=== PATIENT | male | born 1975 | race Caucasian/White ===

== ENCOUNTER 2019-01-17 20:30 | Emergency (ER) | payer OTHER ==
[~2019-01-17] VITALS: Ht 170.2 cm; Wt 102.1 kg
[2019-01-17 20:30] VITALS: BP_SYST 142
[2019-01-17 20:56] LABS: BASOPHILS % (AUTO) 0.4 % (0.0-2.0); EOSINOPHILS # (AUTO) 0.1 K/uL (0.0-0.4); EOSINOPHILS % (AUTO) 1.9 % (0.0-4.0); HEMATOCRIT 41.2 % (36-54); HEMOGLOBIN 14.4 g/dL (14.0-18.0); LYMPHOCYTES % (AUTO) 41.5 % (20.5-51.5); MEAN CORPUSCULAR HEMOGLOBIN 32 pg (27-31); MEAN CORPUSCULAR HGB CONC 35 % (32-36); MEAN CORPUSCULAR VOLUME 91 fL (79.0-98.0); MONOCYTES # (AUTO) 0.5 K/uL (0.0-1.0); MONOCYTES % (AUTO) 6.4 % (1.7-9.3); NEUTROPHILS # (AUTO) 3.6 K/uL (1.8-7.7); NEUTROPHILS % (AUTO) 49.8 % (40.0-70.0); PLATELET COUNT (AUTO) 230 K/uL (130-430); RED BLOOD CELL COUNT(AUTO) 4.54 MIL/uL (4.2-6.2); RED CELL DISTRIBUTION WIDTH 12.7 % (9.0-15.0); WHITE BLOOD COUNT (AUTO) 7.3 K/uL (4.8-10.8)
[2019-01-17] MEDS ORDERED: ASPIRIN 81 MG TAB.CHEW PO ONE (21:00)
[2019-01-17 21:03] LABS: CALCIUM 9.1 mg/dL (8.4-11.0); CREATININE 0.91 mg/dL (0.55-1.30); POTASSIUM 3.4 mmol/L (3.5-5.1)
[2019-01-17 21:08] LABS: ALBUMIN 3.9 g/dL (3.4-4.8); TOTAL BILIRUBIN 0.5 mg/dL (0.0-1.0)
[2019-01-17 21:36] LABS: CKMB RELATIVE INDEX 0.7 (0.0-2.9); CREATINE KINASE MB 2.8 ng/mL (0-3.6)
[2019-01-18 01:04] VITALS: BP_SYST 134
== END 2019-01-18 01:04 | disposition home or self-care (01) ==
LOC: SED 20:30
DX: R07.89 Other chest pain (principal); R53.83 Other fatigue; R03.0 Elevated blood-pressure reading, without diagnosis of hypertension
CPT/HCPCS: 36415; 71046-TC; 80053; 82550-TC; 82553-TC; 84484; 85025; 85379; 93005; 99284